=== PATIENT | male | born 1975 | race Caucasian/White ===

== ENCOUNTER 2020-05-11 12:09 | Emergency (ER) | payer OTHER ==
[~2020-05-11 12:09] MED LIST: ADMELOG SO100 UNIT/1 SQ; BASAGLAR K100 UNIT/1 SQ; CYCLOBENZAPRINE10 MG PO; DELSYM30 MG/5 ML PO; DICLOFENAC GEL PO; FLEXERIL 10 MG10 MG PO; FLONASE 0.05% N16 GM; FLUTICASONE; IBUPROFEN800 MG PO; LISINOPRIL10 MG PO; LORTAB 7.5-3251 EACH PO; LOSARTAN-HCTZ1 EAC1 PO; MELOXICAM15 MG PO; NEURONTIN300 MG PO; NORFLEX 100 MG100 MG PO; SUDAFED 60 MG T60 MG PO; VITAMIN D PO; Voltaren Gel 1% TOP
[2020-05-11] MEDS ORDERED: NAPROSYN500 MG PO (15:18)
[2020-05-11] MEDS ORDERED: CYCLOBENZAPRINE10 MG PO (15:18)
[2020-06-16] MEDS ORDERED: FLONASE 0.05% N16 GM (07:45)
[2020-06-16] MEDS ORDERED: GABAPENTIN800 MG PO (07:45)
[2020-06-16] MEDS ORDERED: BASAGLAR K100 UNIT/1 SC (07:45)
[2020-06-16] MEDS ORDERED: JARDIANCE25 MG PO (07:46)
[2020-06-16] MEDS ORDERED: HYDROCODON-ACE1 EAC2 PO (07:46)
[2020-06-16] MEDS ORDERED: LOSARTAN-HCTZ1 EAC1 PO (07:47)
[2020-06-16] MEDS ORDERED: PHENERGAN 25 MG25 M1 PO (07:47)
[2020-06-16] MEDS ORDERED: TESTOSTERO200 MG/11 IM (07:48)
[2020-06-16] MEDS ORDERED: VITAMIN D3 PO (07:49)
[2020-07-02] MEDS ORDERED: LANTUS SOL100 UNIT/1 SQ (06:35)
[2020-07-02] MEDS ORDERED: PROTONIX 40 MG40 M1 PO (06:36)
[2020-07-02] MEDS ORDERED: CARAFATE 1 GM TA1 GM PO (06:36)
[2020-07-02] MEDS ORDERED: HYDROCODON-ACE1 EAC2 PO (08:55)
== END 2020-05-11 16:30 | disposition home or self-care (01) ==
LOC: ER1 12:09
DX: M54.5 Low back pain (principal); E11.9 Type 2 diabetes mellitus without complications; Z87.39 Personal history of other diseases of the musculoskeletal system and connective tissue; Z98.890 Other specified postprocedural states; W01.0XXA Fall on same level from slipping, tripping and stumbling without subsequent striking against object, initial encounter
CPT/HCPCS: 72131; 96372; 99283; J1885

== ENCOUNTER 2020-05-22 11:27 | Emergency (ER) | payer OTHER ==
[~2020-05-22 11:27] MED LIST changes: +NAPROSYN500 MG PO
[2020-05-22 13:20] LABS: HEMOGLOBIN 14.5 gm/dl (14.0-17.5); RED BLOOD COUNT 4.93 M/UL (4.20-5.50); WHITE BLOOD COUNT 6.8 K/UL (4.5-11.0)
[2020-05-22 13:38] LABS: BUN/CREATININE RATIO 17 (0-10)
[2020-05-22] MEDS ORDERED: PHENERGAN 25 MG25 M1 PO (18:59)
[2020-05-22] MEDS ORDERED: ENDOCET 5-3251 EACH PO (19:19)
[2020-05-22] MEDS ORDERED: PRILOSEC OTC20 MG PO (19:29)
[2020-06-16] MEDS ORDERED: BASAGLAR K100 UNIT/1 SC (07:45)
[2020-06-16] MEDS ORDERED: GABAPENTIN800 MG PO (07:45)
[2020-06-16] MEDS ORDERED: FLONASE 0.05% N16 GM (07:45)
[2020-06-16] MEDS ORDERED: JARDIANCE25 MG PO (07:46)
[2020-06-16] MEDS ORDERED: HYDROCODON-ACE1 EAC2 PO (07:46)
[2020-06-16] MEDS ORDERED: LOSARTAN-HCTZ1 EAC1 PO (07:47)
[2020-06-16] MEDS ORDERED: PHENERGAN 25 MG25 M1 PO (07:47)
[2020-06-16] MEDS ORDERED: TESTOSTERO200 MG/11 IM (07:48)
[2020-06-16] MEDS ORDERED: VITAMIN D3 PO (07:49)
[2020-07-02] MEDS ORDERED: LANTUS SOL100 UNIT/1 SQ (06:35)
[2020-07-02] MEDS ORDERED: PROTONIX 40 MG40 M1 PO (06:36)
[2020-07-02] MEDS ORDERED: CARAFATE 1 GM TA1 GM PO (06:36)
[2020-07-02] MEDS ORDERED: HYDROCODON-ACE1 EAC2 PO (08:55)
== END 2020-05-22 20:13 | disposition home or self-care (01) ==
LOC: ER1 11:27
PROVIDERS: Emergency Medicine
DX: K52.9 Noninfective gastroenteritis and colitis, unspecified (principal); U07.1 COVID-19; K59.00 Constipation, unspecified; K22.8 Other specified diseases of esophagus; R91.8 Other nonspecific abnormal finding of lung field; E11.9 Type 2 diabetes mellitus without complications; I10 Essential (primary) hypertension
CPT/HCPCS: 71045; 80053; 81001; 82150; 83690; 85025; 85652; 86140; 96374; 96375; 96376; 99284; C9113; J1170; J2270; J2405; J7030; Q9967; U0002

== ENCOUNTER → 2020-05-29 | Outpatient (CLI) | payer OTHER ==
[~2020-05-29] MED LIST changes: +BASAGLAR K100 UNIT/1 SC; +CARAFATE 1 GM TA1 GM PO; +ENDOCET 5-3251 EACH PO; +GABAPENTIN800 MG PO; +HYDROCODON-ACE1 EAC2 PO; +JARDIANCE25 MG PO; +LANTUS SOL100 UNIT/1 SQ; +MEDROL DOSEPAK 24 MG PO; +PHENERGAN 25 MG25 M1 PO; +PRILOSEC OTC20 MG PO; +PROTONIX 40 MG40 M1 PO; +TESTOSTERO200 MG/11 IM; +VITAMIN D3 PO
== END ==
LOC: KOH-I 10:46
DX: R10.9 Unspecified abdominal pain (principal); K80.20 Calculus of gallbladder without cholecystitis without obstruction
CPT/HCPCS: 76705

== ENCOUNTER → 2020-06-16 | Day surgery (SDC) | payer OTHER | END | disposition home or self-care (01) | LOC: OR 07:00 | DX: K31.7 Polyp of stomach and duodenum (principal); K21.00 Gastro-esophageal reflux disease with esophagitis, without bleeding; K22.10 Ulcer of esophagus without bleeding; K59.00 Constipation, unspecified; F41.9 Anxiety disorder, unspecified; E11.42 Type 2 diabetes mellitus with diabetic polyneuropathy; I10 Essential (primary) hypertension; Z20.822 Contact with and (suspected) exposure to COVID-19; Z88.8 Allergy status to other drugs, medicaments and biological substances; Z79.4 Long term (current) use of insulin; Z79.899 Other long term (current) drug therapy | CPT/HCPCS: 82962; J1642; J2704; J7030 ==

== ENCOUNTER → 2020-07-02 | Day surgery (SDC) | payer OTHER ==
[~2020-07-02] VITALS: Ht 177.8 cm; Wt 81.6 kg
== END | disposition home or self-care (01) ==
LOC: OR 06:08
DX: K80.10 Calculus of gallbladder with chronic cholecystitis without obstruction (principal); I10 Essential (primary) hypertension; K21.9 Gastro-esophageal reflux disease without esophagitis; F41.9 Anxiety disorder, unspecified; E11.42 Type 2 diabetes mellitus with diabetic polyneuropathy; F17.290 Nicotine dependence, other tobacco product, uncomplicated; Z88.8 Allergy status to other drugs, medicaments and biological substances; Z79.4 Long term (current) use of insulin; Z79.899 Other long term (current) drug therapy
CPT/HCPCS: 82962; J0690; J1100; J1170; J1885; J2001; J2250; J2405; J2704; J2710; J3010; J7030; J7120

== ENCOUNTER 2020-11-26 11:42 | Emergency (ER) | payer OTHER ==
[~2020-11-26 11:42] MED LIST changes: -MEDROL DOSEPAK 24 MG PO
[2020-11-26] MEDS ORDERED: MEDROL DOSEPAK 24 MG PO (13:24)
[2020-11-26] MEDS ORDERED: CYCLOBENZAPRINE10 MG PO (13:24)
== END 2020-11-26 14:15 | disposition home or self-care (01) ==
LOC: ER1 11:42
DX: S39.012A Strain of muscle, fascia and tendon of lower back, initial encounter (principal); E11.9 Type 2 diabetes mellitus without complications; I10 Essential (primary) hypertension; X50.0XXA Overexertion from strenuous movement or load, initial encounter
CPT/HCPCS: 96372; 99283; J1100; J1885

== ENCOUNTER 2021-03-31 13:49 | Emergency (ER) | payer OTHER ==
[~2021-03-31 13:49] MED LIST changes: -BACTROBAN OINT22 GM EXT; -CEPHALEXIN500 MG PO
[2021-03-31 14:50] LABS: RED BLOOD COUNT 4.44 M/UL (4.20-5.50); WHITE BLOOD COUNT 12.2 K/UL (4.5-11.0)
[2021-03-31] MEDS ORDERED: BACTROBAN OINT22 GM EXT (17:11)
[2021-03-31] MEDS ORDERED: CEPHALEXIN500 MG PO (17:13)
== END 2021-03-31 17:35 | disposition home or self-care (01) ==
LOC: ER1 13:49
PROVIDERS: Emergency Medicine; Nurse Practitioner
DX: N48.89 Other specified disorders of penis (principal); N19 Unspecified kidney failure; E11.9 Type 2 diabetes mellitus without complications; K21.9 Gastro-esophageal reflux disease without esophagitis
CPT/HCPCS: 80053; 80307; 81001; 83605; 83690; 85025; 96374; 96375; 96376; 99284; J2270; J2405; J7030; Q9967

== ENCOUNTER → 2021-03-31 | Outpatient (CLI) | payer OTHER ==
[~2021-03-31] MED LIST changes: +BACTROBAN OINT22 GM EXT; +CEPHALEXIN500 MG PO; +MEDROL DOSEPAK 24 MG PO
[2021-03-31 14:17] LABS: HEMOGLOBIN 12.7 gm/dl (14.0-17.5); RED BLOOD COUNT 4.34 M/UL (4.20-5.50); WHITE BLOOD COUNT 12.1 K/UL (4.5-11.0)
[2021-04-01 09:13] LABS: CREATININE, URINE 68.1 mg/dL (Not Estab.)
== END ==
LOC: HEART 5 02-11 13:30 → ECHO 12:30
PROVIDERS: Nurse Practitioner Family
DX: I10 Essential (primary) hypertension (principal); R60.0 Localized edema; E11.9 Type 2 diabetes mellitus without complications; R00.2 Palpitations; E55.9 Vitamin D deficiency, unspecified
CPT/HCPCS: ECHO; 36415; 80053; 80061; 82043; 82570; 83036; 83880; 84439; 84443; 85025; 93306

== ENCOUNTER 2021-04-17 12:26 | Emergency (ER) | payer OTHER ==
[~2021-04-17 12:26] MED LIST changes: +BACTROBAN OINT22 GM EXT; +CEPHALEXIN500 MG PO
[2021-04-17 13:07] LABS: HEMOGLOBIN 12.3 gm/dl (14.0-17.5); RED BLOOD COUNT 4.36 M/UL (4.20-5.50); WHITE BLOOD COUNT 10.3 K/UL (4.5-11.0)
[2021-04-17 13:27] LABS: BUN/CREATININE RATIO 17 (0-10)
[2021-04-17] MEDS ORDERED: ZOFRAN4 MG PO (17:06)
== END 2021-04-17 17:17 | disposition home or self-care (01) ==
LOC: ER1 12:26
PROVIDERS: Emergency Medicine
DX: R10.33 Periumbilical pain (principal); E11.9 Type 2 diabetes mellitus without complications; I10 Essential (primary) hypertension; Z20.822 Contact with and (suspected) exposure to COVID-19; Z90.49 Acquired absence of other specified parts of digestive tract
CPT/HCPCS: 80053; 81001; 83605; 83690; 85025; 96374; 96375; 99284; J2270; J2405; J7030; Q9967; U0002

== ENCOUNTER 2021-06-23 15:06 | Emergency (ER) | payer OTHER ==
[~2021-06-23 15:06] MED LIST changes: +ZOFRAN4 MG PO
[2021-06-23 16:03] LABS: HEMOGLOBIN 9.4 gm/dl (14.0-17.5); RED BLOOD COUNT 3.77 M/UL (4.20-5.50); WHITE BLOOD COUNT 13.9 K/UL (4.5-11.0)
[2021-06-23 16:38] LABS: BUN/CREATININE RATIO 13 (0-10)
== END 2021-06-23 18:00 | disposition home or self-care (01) ==
LOC: ER1 15:06
PROVIDERS: Physician Assistant
DX: U07.1 COVID-19 (principal); E11.9 Type 2 diabetes mellitus without complications; I10 Essential (primary) hypertension; Z90.49 Acquired absence of other specified parts of digestive tract
CPT/HCPCS: 71045; 80053; 82009; 82550; 82553; 83874; 84484; 85025; 93005; 99283

== ENCOUNTER 2021-07-01 15:32 | Emergency (ER) | payer OTHER ==
[2021-07-01 16:33] LABS: RED BLOOD COUNT 2.74 M/UL (4.20-5.50); WHITE BLOOD COUNT 8.9 K/UL (4.5-11.0)
[2021-07-01 16:44] LABS: HEMOGLOBIN 6.6 gm/dl (14.0-17.5)
[2021-07-01 17:17] LABS: BUN/CREATININE RATIO 14 (0-10)
[2021-07-02 04:01] LABS: HEMOGLOBIN 8.4 gm/dl (14.0-17.5)
[2021-07-02 11:37] LABS: HEMOGLOBIN 9.4 gm/dl (14.0-17.5); WHITE BLOOD COUNT 7.9 K/UL (4.5-11.0)
[2021-07-02 11:43] LABS: RED BLOOD COUNT 3.68 M/UL (4.20-5.50)
[2021-07-02 11:48] LABS: BUN/CREATININE RATIO 12 (0-10)
[2021-07-03 10:46] LABS: HEMOGLOBIN 8.9 gm/dl (14.0-17.5); RED BLOOD COUNT 3.48 M/UL (4.20-5.50)
[2021-07-03 10:47] LABS: WHITE BLOOD COUNT 5.7 K/UL (4.5-11.0)
[2021-07-03 11:16] LABS: BUN/CREATININE RATIO 8 (0-10)
[2021-07-04 07:47] LABS: HEMOGLOBIN 8.9 gm/dl (14.0-17.5); RED BLOOD COUNT 3.47 M/UL (4.20-5.50); WHITE BLOOD COUNT 5.7 K/UL (4.5-11.0)
== END 2021-07-05 00:47 | disposition short-term general hospital (02) ==
LOC: ER1 15:32
PROVIDERS: Emergency Medicine; Internal Medicine; Physician Assistant
DX: U07.1 COVID-19 (principal); D64.9 Anemia, unspecified; M54.50 Low back pain, unspecified; E11.9 Type 2 diabetes mellitus without complications; I10 Essential (primary) hypertension; I82.409 Acute embolism and thrombosis of unspecified deep veins of unspecified lower extremity; Z88.8 Allergy status to other drugs, medicaments and biological substances
CPT/HCPCS: 36430; 70450; 71045; 72072; 72100; 72125; 80048; 80053; 82009; 82272; 82550; 82553; 82962; 83874; 84484; 85014; 85018; 85025; 86850; 86900; 86901; 86920; 93005; 96365; 96375; 96376; 99285; C9113; J1170; J1885; J2270; J2405; J7050; P9016; U0002

== ENCOUNTER 2021-12-16 11:50 | Emergency (ER) | payer OTHER ==
[2021-12-16] MEDS ORDERED: CYCLOBENZAPRINE5 MG PO (14:33)
[2021-12-16] MEDS ORDERED: MELOXICAM15 MG PO (14:33)
== END 2021-12-16 14:50 | disposition home or self-care (01) ==
LOC: ER1 11:50
DX: T84.296A Other mechanical complication of internal fixation device of vertebrae, initial encounter (principal); M54.41 Lumbago with sciatica, right side; M54.42 Lumbago with sciatica, left side; G89.29 Other chronic pain; E11.9 Type 2 diabetes mellitus without complications; I10 Essential (primary) hypertension; K21.9 Gastro-esophageal reflux disease without esophagitis; Z90.49 Acquired absence of other specified parts of digestive tract
CPT/HCPCS: 96372; 99283; J1885

== ENCOUNTER 2022-01-27 05:10 | Emergency (ER) | payer OTHER ==
[~2022-01-27 05:10] MED LIST changes: +CYCLOBENZAPRINE5 MG PO
== END 2022-01-27 05:28 | disposition expired ==
LOC: ER1 05:10
DX: I46.9 Cardiac arrest, cause unspecified (principal); F15.10 Other stimulant abuse, uncomplicated; E11.9 Type 2 diabetes mellitus without complications; I10 Essential (primary) hypertension
CPT/HCPCS: 92950; 99285; J0171